=== PATIENT | male | born 1970 | race Caucasian/White ===

== ENCOUNTER 2020-10-11 13:43 | Emergency (ER) | payer OTHER ==
[~2020-10-11] VITALS: Ht 175.3 cm; Wt 86.2 kg
--- NOTE | ~2020-10-11 | EMS ---
[address] [address] EMS Patient Care Report Name: LIANE DAVILA Room: [facility]#: [id number] Admission: 10/11/20 Attend Phys: Discharge: Date of : 68 Report #: [id number] THIS REPORT FOR: //name// Report Transmitted: 10/11/2020 13:17 EMS Care Summary [place] Incident [id number] @ 10/11/2020 12:59 Incident Location [address] [place] [address] [place], [place] [address] Patient Liane Davila Male, 50 Years 1970 Patient Address [address] [place] [address] Patient Allergies , Chief Complaint Weakness Disposition Transported No Lights/Tobias Dispatch Reason Unknown Problem/Person Down Transported To [facility] Narrative Dispatched to address noted for a sick patient. [facility] en route and on scene at time noted. Arrived and found patient laying on the sofa, in the living room. Patient was alert, pale and had diaphertic skin. Patient stated that he has been working on a toilet in the home for the last few days and has had a raw alterations sewer line open and attempting to ventilate it. This morning at 0200 he had a bout of diarrhea and had a full syncopal episode. Patient then woke up on the floor with bleeding from the bridge of the nose and neck pain. Patient has been feeling tired and weak all day and took an unknown muscle relaxer at 0800 this morning for his neck. He stated the name started with a "T". Vitals where taken at time noted. Patient had a normal pulse and stated no chest pain or shortness [address] [place] [address] EMS Patient Care Report Name: TRENTONLIANE Geovanna Room: [facility]#: [id number] Admission: 10/11/20 Attend Phys: Discharge: Date of : 68 Report #: [id number] of breath. Patient was sat up and additional blood pressures where taken with no major change to vitals. Patient agreed to the nearest hospital and that was [facility] due to other hospitals high volume status. Patient was assisted to stretcher and stated increased dizziness when standing. Once in ambulance, vitals where taken again and blood pressure was consistent. Patient was complaining of neck pain from the fall and a blanket roll was provided for comfort. IV was obtained with blood glucose and fluids where started as noted. While en route, vitals where taken at time noted with no major change occurring. Radio report was given at time noted. Arrived and took patient to room 9. Patient was moved to bed and RN was given verbal report. RN signed for patient and patient signed for self. END REPORT EMT-P Israel Gurrola Initial Vitals @13:28Pain: 09/10, @13:23Pain: 09/10, @13:20SpO2: 97, @13:06SpO2: 97, @13:07SpO2: 97, @13:09SpO2: 98, @13:10SpO2: 96, @13:18SpO2: 96, @13:20SpO2: 98, @13:25SpO2: 97, @13:30SpO2: 95, @13:32SpO2: 96, @13:10 @13:06P: 65,R: 16,BP: 115/65, @13:07P: 66,R: 16,BP: 116/71, @13:18P: 63,R: 16,BP: 117/64, @13:32P: 63,R: 15,BP: 123/60, @13:06GCS: 15, @13:07GCS: 15, @13:18GCS: 15, @13:32GCS: 15, @13:26 @13:20Glucose: 151, @13:23Glucose: 151, Assessments @13:05MENTAL:SKIN:HEENT:LUNG SOUNDS:ABDOMEN:PELVIS//GI:EXTREMITIES:PULSE:NEURO: Impression [place] [address] EMS Patient Care Report Name: LIANE DAVILA Room: [facility] Harvey#: [id number] Admission: 10/11/20 Attend Phys: Discharge: Date of : 68 Report #: [id number] @13:22 cc () Site: Antecubital-LeftResponse: UnchangedSucceeded@13:1012-Lead ECGResponse: UnchangedSucceeded Timeline 12:59,Call Received 12:59,Dispatch Notified 12:59,Psap Call 12:59,Dispatched 12:59,En Route 13:03,On Scene 13:05,At Patient 13:06,BP: / M,PULSE: ,RR: R,SPO2: 97 Ox,ETCO2: ,BG: ,PAIN: ,GCS: , 13:06,BP: 115/65 M,PULSE: 65,RR: 16 R,SPO2: Ox,ETCO2: ,BG: ,PAIN: ,GCS: , 13:06,BP: / M,PULSE: ,RR: R,SPO2: Ox,ETCO2: ,BG: ,PAIN: ,GCS: 15, 13:07,BP: / M,PULSE: ,RR: R,SPO2: 97 Ox,ETCO2: ,BG: ,PAIN: ,GCS: , 13:07,BP: 116/71 M,PULSE: 66,RR: 16 R,SPO2: Ox,ETCO2: ,BG: ,PAIN: ,GCS: , 13:07,BP: / M,PULSE: ,RR: R,SPO2: Ox,ETCO2: ,BG: ,PAIN: ,GCS: 15, 13:09,BP: / M,PULSE: ,RR: R,SPO2: 98 Ox,ETCO2: ,BG: ,PAIN: ,GCS: , 13:10,12-Lead ECG,Response: UnchangedSucceeded, 13:10,BP: / M,PULSE: ,RR: R,SPO2: 96 Ox,ETCO2: ,BG: ,PAIN: ,GCS: , 13:10,BP: / M,PULSE: ,RR: R,SPO2: Ox,ETCO2: ,BG: ,PAIN: ,GCS: , 13:18,BP: / M,PULSE: ,RR: R,SPO2: 96 Ox,ETCO2: ,BG: ,PAIN: ,GCS: , 13:18,BP: 117/64 M,PULSE: 63,RR: 16 R,SPO2: Ox,ETCO2: ,BG: ,PAIN: ,GCS: , 13:18,BP: / M,PULSE: ,RR: R,SPO2: Ox,ETCO2: ,BG: ,PAIN: ,GCS: 15, 13:20,BP: / M,PULSE: ,RR: R,SPO2: 98 Ox,ETCO2: ,BG: ,PAIN: ,GCS: , 13:20,BP: / M,PULSE: ,RR: R,SPO2: Ox,ETCO2: ,B,PAIN: ,GCS: , 13:20,BP: / M,PULSE: ,RR: R,SPO2: 97 Ox,ETCO2: ,BG: ,PAIN: ,GCS: , 13:22, cc Site: Antecubital-Left,Response: UnchangedSucceeded, 13:23,Depart Scene 13:23,BP: / M,PULSE: ,RR: R,SPO2: Ox,ETCO2: ,BG: ,PAIN: 4,GCS: , 13:23,BP: / M,PULSE: ,RR: R,SPO2: Ox,ETCO2: ,B,PAIN: ,GCS: , 13:25,BP: / M,PULSE: ,RR: R,SPO2: 97 Ox,ETCO2: ,BG: ,PAIN: ,GCS: , 13:26,BP: / M,PULSE: ,RR: R,SPO2: Ox,ETCO2: ,BG: ,PAIN: ,GCS: , 13:28,BP: / M,PULSE: ,RR: R,SPO2: Ox,ETCO2: ,BG: ,PAIN: 4,GCS: , 13:30,BP: / M,PULSE: ,RR: R,SPO2: 95 Ox,ETCO2: ,BG: ,PAIN: ,GCS: , 13:32,BP: / M,PULSE: ,RR: R,SPO2: 96 Ox,ETCO2: ,BG: ,PAIN: ,GCS: , 13:32,BP: 123/60 M,PULSE: 63,RR: 15 R,SPO2: Ox,ETCO2: ,BG: ,PAIN: ,GCS: , 13:32,BP: / M,PULSE: ,RR: R,SPO2: Ox,ETCO2: ,BG: ,PAIN: ,GCS: 15, 13:41,At Destination 13:59,Call Closed Disclaimer v1.1 Copyright 2020 [employer] This EMS Care Summary contains data elements from the applicable legal record (which may be displayed differently). It is designed to provide pertinent information for the following purposes: continuity of care, clinical quality, [facility] [address] [place] [address] EMS Patient Care Report Name: LIANE DAVILA Room: [facility]#: [id number] Admission: 10/11/20 Attend Phys: Discharge: Date of : 68 Report #: [id number] and state data reporting. The complete legal record is available to ED staff and administrators of the receiving hospital in [facility]'s Patient Tracker. All data is provided "as is."
[2020-10-11 14:22] LABS: URINE BILIRUBIN NEGATIVE (Negative); URINE BLOOD NEGATIVE (Negative); URINE CLARITY CLEAR; URINE COLOR YELLOW; URINE GLUCOSE-RANDOM NEGATIVE (Negative); URINE KETONES NEGATIVE (Negative); URINE LEUKOCYTES-REFLEX NEGATIVE (Negative); URINE NITRITE-REFLEX NEGATIVE (Negative); URINE PROTEIN NEGATIVE (Negative); URINE SPECIFIC GRAVITY >= 1.030 (1.005-1.030); URINE UROBILINOGEN 0.2 E.U./dl (0.2-1.0)
[2020-10-11 14:55] LABS: HEMATOCRIT 43.6 % (42.0-52.0); HEMOGLOBIN 14.9 gm/dL (14.0-18.0); MCH 30.1 pg (26.0-34.0); MCHC 34.2 g/dL (28.0-37.0); MCV 87.9 fL (80.0-100.0); MPV 7.7 fl. (7.2-11.1); NUCLEATED RBCS 0 /100WBC; PLATELET COUNT* 258 thou/uL (150-400); RBC 4.95 mil/uL (4.50-6.00); RDW-CV 12.6 % (10.5-14.5); WBC 10.4 thou/uL (4.0-11.0)
[2020-10-11 15:08] LABS: CALCIUM 8.6 mg/dL (8.5-10.1); CREATININE 0.9 mg/dL (0.6-1.3); POTASSIUM 4.4 mmol/L (3.5-5.1)
[2020-10-11 15:13] LABS: ALBUMIN 3.9 g/dL (3.4-5.0); TOTAL BILIRUBIN 0.7 mg/dL (<0.1-1.0); TOTAL PROTEIN 7.8 g/dL (6.4-8.2)
[2020-10-11 15:21] LABS: ABSOLUTE EOSINOPHILS 0.1 thou/uL (0.0-0.7); ABSOLUTE LYMPHOCYTES 0.3 thou/uL (0.8-5.3); ABSOLUTE MONOCYTES 0.4 thou/uL (0.0-1.2); ABSOLUTE NEUTROPHILS 9.6 thou/uL (1.6-8.1); PLATELET ESTIMATE ADEQUATE
--- NOTE | 2020-10-11 15:46 | EKG ---
[place] [address] ELECTROCARDIOGRAM REPORT Name: LIANE CHOWDHURY Room: [facility]#: [id number] Admission: 10/11/20 Attend Phys: Discharge: Date of : 68 Date of Service: 10/11/20 1416 Report #: [id number] THIS REPORT FOR: //name// 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
[2020-10-11 17:10] VITALS: BP 107/59
== END 2020-10-11 17:10 | disposition home or self-care (01) ==
LOC: M.ERS 13:43
PROVIDERS: Family Medicine
DX: E86.0 Dehydration (principal); Z20.822 Contact with and (suspected) exposure to COVID-19; R55 Syncope and collapse; R19.7 Diarrhea, unspecified; Z88.0 Allergy status to penicillin